=== PATIENT | female | born 1960 | race Caucasian/White ===

== ENCOUNTER 2018-05-24 18:50 | Emergency (ER) | payer OTHER, BC ==
[~2018-05-24] VITALS: Ht 166.4 cm; Wt 63.6 kg
[2018-05-24 23:25] VITALS: BP 166/96
== END 2018-05-24 23:26 | disposition home or self-care (01) ==
LOC: EME 18:50
DX: S60.212A Contusion of left wrist, initial encounter (principal); S60.211A Contusion of right wrist, initial encounter; S80.02XA Contusion of left knee, initial encounter; S00.83XA Contusion of other part of head, initial encounter; M25.511 Pain in right shoulder; M25.512 Pain in left shoulder; S80.212A Abrasion, left knee, initial encounter; S60.416A Abrasion of right little finger, initial encounter; S60.511A Abrasion of right hand, initial encounter; W01.0XXA Fall on same level from slipping, tripping and stumbling without subsequent striking against object, initial encounter; Y99.0 Civilian activity done for income or pay; F17.200 Nicotine dependence, unspecified, uncomplicated
CPT/HCPCS: 71046; 73110; 73564; 99281; 99284